=== PATIENT | male | born 1955 | race African-American/Black ===

== ENCOUNTER 2016-08-30 07:43 | Inpatient (IN) | payer OTHER ==
[~2016-08-30] VITALS: Ht 172.7 cm; Wt 89.2 kg
[2016-08-30] MEDS ORDERED: ONDANSETRON 4 MG INJ IV STA (07:59)
[2016-08-30] MEDS ORDERED: SOD CHLORIDE 0.9% 1,000 ML IV STA ×2 (07:59→09:20)
[2016-08-30] MEDS ORDERED: MECLIZINE 12.5 MG TAB PO ONE ×2 (08:00→09:30)
--- NOTE | 2016-08-30 08:27 | ERA ---
ER Documentation Chief Complaint Date/Time DATE: 08/30/16 TIME: 08:12 Chief Complaint pt bib self, woke up with dizziness/unsteady gait and left ear ringing HPI This is a very pleasant 61-year-old male with a known history of hypertension, who works as a critical care nurse, and presents to the emergency department complaining of a sudden onset of ringing and loss of hearing in his left ear. The patient indicates that he went to bed at 8 PM, 12 hours prior to arrival. At midnight the patient awoke to answer his phone and when he placed the phone to his left ear he stated he could not hear anything, which was 8 hours prior to arrival. The patient went back to sleep and when he awoke this morning at roughly 5 AM he indicated his symptoms have not been able to hear in his left ear still remained. At this time he stated he developed a sudden onset of dizziness and felt unsteady in his gait. He denied headache or changes in vision. He denies any recent remote head or neck trauma. The patient has a past medical history of hypertension and has been compliant with his medications. He denies any chest pain or pressure that radiates to the neck arm back or jaw. He wears glasses but states there is been no changes in vision. He denies any recent instrumentation to his left ear and indicates that there is no ear pain or ringing sensation in his left ear. He drove himself to the emergency department and did state his unsteadines made him feel as though he was going to pass out but did not experience a syncope episode. Has no shortness of breath at rest or exertion. He has never experienced any similar symptoms in the past ROS All systems reviewed and are negative except as per history of present illness. Medications Home Meds Reported Medications Clonidine Hcl* (Clonidine Hcl*) 0.3 Mg Tablet, 0.3 MG PO PRN Y for ELEVATED BLOOD PRESSURE, TAB 08/30/16 Esomeprazole Mag Trihydrate (Nexium) 40 Mg Capsule., 40 MG PO DAILY, #30 CAP 08/30/16 Allergies Allergies: Coded Allergies: No Known Allergy (Unverified , 08/30/16) Physical Exam Vitals Vital Signs Date Time Temp Pulse Resp B/P Pulse Ox O2 Delivery O2 Flow Rate FiO2 08/30/16 09:56 98.6 86 16 145/86 100 Room Air 08/30/16 08:32 98.6 86 16 143/93 100 Room Air 08/30/16 07:51 98.3 62 16 165/90 99 Physical Exam Constitutional:Well-developed. Well-nourished. HEENT:Normocephalic. Atraumatic.Pupils were equal round reactive to light. Moist mucous membranes.No tonsillar exudates. No bulging erythema the tympanic membranes bilaterally. No postauricular tenderness. Endoscopy exam showed sharp optic disc bilaterally venous pulsations were present. Neck: No nuchal rigidity. No lymphadenopathy. No posterior cervical spine tenderness or step-offs. Respiratory: Not using accessory muscles of respiration.Lungs were clear to auscultation bilaterally. No rhonchi. No rales. No wheezing. Cardiovascular: Regular rate regular rhythm.No murmurs. No rubs were appreciated.S1, S2 normal. Distal pulses are palpable 2+ bilaterally. GI: Abdomen was soft. Nontender. Non Distended. No pulsatile abdominal masses or bruits. No rebound. No guarding. Bowel sounds were present and normal. Muscle skeletal: Full range of motion of both the upper and lower extremities bilaterally.Normal muscle tone.No assymetrical calf tenderness or swelling. Skin: No petechia, no purpura. No lesions on the palms or the soles of the feet. No maculopapular rash. NEURO: Patient was alert, awake, orientated x3.No facial droop. Gait observed and ataxic.Speech had regular rate and rhythm. No focal neurological deficits. No facial droop or flattening nasolabial fold. No pronator drift. Romberg sign negative. Result Diagram: 08/30/1682708/30/1628 Results 24 hrs Laboratory Tests Test 08/30/16 08:28 Activated Partial Thromboplast Time 25.8Sec Alanine Aminotransferase (ALT/SGPT) 35IU/L Albumin 4.4g/dl Albumin/Globulin Ratio 1.15 Alkaline Phosphatase 67IU/L Anion Gap 18 Aspartate Amino Transf (AST/SGOT) 34IU/L Basophils # 0.010^3/ul Basophils % 0.8% Blood Urea Nitrogen 12mg/dl Calcium Level 9.8mg/dl Carbon Dioxide Level 30mmol/L Chloride Level 101mmol/L Creatine Kinase 561IU/L Creatine Kinase Index 0.8 Creatinine 1.15mg/dl Creatinine Kinase MB (Mass) 4.51ng/ml Direct Bilirubin 0.00mg/dl Eosinophils # 0.110^3/ul Eosinophils % 1.0% Globulin 3.80g/dl Glucose Level 89mg/dl Hematocrit 44.5% Hemoglobin 14.0g/dl INR International Normalized Ratio 0.94 Indirect Bilirubin 0.3mg/dl Lymphocytes # 2.310^3/ul Lymphocytes % 47.6% Mean Corpuscular Hemoglobin 27.9pg Mean Corpuscular Hemoglobin Concent 31.5g/dl Mean Corpuscular Volume 88.8fl Mean Platelet Volume 9.7fl Monocytes # 0.510^3/ul Monocytes % 10.1% Neutrophils # 1.910^3/ul Neutrophils % 40.3% Nucleated Red Blood Cells # 0.010^3/ul Nucleated Red Blood Cells % 0.0/100WBC Platelet Count 75545^3/UL Potassium Level 4.6mmol/L Prothrombin Time 12.6Sec Prothrombin Time Ratio 1.0 Red Blood Count 5.0110^6/ul Red Cell Distribution Width 12.7% Sodium Level 144mmol/L Total Bilirubin 0.3mg/dl Total Protein 8.2g/dl Troponin I 0.014ng/ml White Blood Count 4.810^3/ul Current Medications Medications (Trade) Dose Ordered Sig/Salomon Route PRN Reason Start Time Stop Time Status Last Admin Dose Admin Sodium Chloride (NS) 1,000 ml @ 1,000 mls/hr Q1H STAT IV 08/30/16 07:59 08/30/16 08:58 Cancel Ondansetron HCl (Zofran Inj) 4 mg ONCE STAT IV 08/30/16 07:59 08/30/16 08:00 Cancel Meclizine HCl 25 mg 25 mg ONCE ONCE PO 08/30/16 08:00 08/30/16 08:01 Cancel Sodium Chloride (NS) 1,000 ml @ 1,000 mls/hr Q1H STAT IV 08/30/16 09:20 08/30/16 10:19 08/30/16 09:43 Meclizine HCl (Antivert) 25 mg ONCE ONCE PO 08/30/16 09:30 08/30/16 09:31 DC 08/30/16 09:44 Acetaminophen (Tylenol Tab) 1,000 mg ONCE STAT PO 08/30/16 09:31 08/30/16 09:32 DC 08/30/16 09:44 Ondansetron HCl (Zofran Inj) 4 mg ER BRIDGE PRN IV NAUSEA AND/OR VOMITING 08/30/16 10:00 08/31/16 09:59 Acetaminophen (Tylenol Tab) 650 mg ER BRIDGE PRN PO MILD PAIN/FEVER 08/30/16 10:00 08/31/16 09:59 Procedures/MDM This patient presented to the emergency department with a sudden onset of unilateral hearing loss. He was immediately placed in a cardiac monitor technician continuous pulse oximetry and IV access was established by nursing staff. The patient did have an ataxic gait but given that his symptoms had started 12 hours prior to arrival, the patient was not a TPA candidate and therefore a code stroke was not called. I obtained a 12-lead EKG tracing to rule out atypical myocardial infarction. 12 Lead EKG tracing ordered and reviewed by myself showed: Normal sinus rhythm of 76 bpm and no arrhythmia. NE interval normal. QRS duration normal. No ST segment elevation No ST segment depression. T-wave inversion of the lateral leads V5 V6 The patient had no electrolyte abnormalities. I obtained a CT scan of the patient's head to further evaluate his ataxia and unilateral hearing loss. The patient had no intracerebral hemorrhage mass-effect or midline shift. When the patient was lying supine for the CT scan he stated he had a sudden onset of severe vertigo. The patient was also now complaining of a mild headache and my differential diagnosis included but was not limited to meningitis, SAH, intracerebral hemorrhage, hypertensive encephalopathy, cranial artery dissection , cerebral venous sinus thrombosis, traumatic, acute sinusitis. The patient has no ocular symptoms to suggest temporal neuritis, acute narrow-angle glaucoma or pituitary apoplexy. The patient did not appear to have a toxic or metabolic etiology such as fever, hypoglycemia, high-altitude disease or carbon monoxide poisoning. This was not the patients worse headache of their life. The patient had a complete neurologic and fundoscopic exam performed by myself that was normal with no focal neurological deficits or retinal hemorrhage. The patient stated this headache was not severe or distinct from other headaches and the history with the physical exam findings did not likely suggest SAH. Therefore, I did not feel it was clinically necessary to perform a lumbar puncture and CSF analysis. I did however feel it was necessary for the patient to be admitted for further evaluation into his symptoms and therefore I have ordered an MRI of the brain which will be followed up by the admitting physician Dr. Dubois. The patient was given Tylenol for his headache which did resolve the headache. He also was given a liter bolus of normal saline and Antivert with resolution of the vertigo. Departure Diagnosis: Primary Impression: Near syncope Additional Impressions: Ataxia Unilateral hearing loss Qualified Code: H91.92 - Unilateral hearing loss, left Condition: Serious DAVON LAWSON Aug 30, 2016 08:24
[2016-08-30 08:38] LABS: ADD SCAN DIFF NO
[2016-08-30 08:40] LABS: BASOPHILS % 0.8 % (0.0-2.0); EOSINOPHILS # 0.1 10^3/ul (0.0-0.5); HEMATOCRIT 44.5 % (42.0-52.0); LYMPHOCYTES # 2.3 10^3/ul (0.8-2.9); LYMPHOCYTES % 47.6 % (15.0-51.0); MEAN CORPUSCULAR HEMOGLOBIN 27.9 pg (29.0-33.0); MEAN CORPUSCULAR HGB CONC 31.5 g/dl (32.0-37.0); MEAN CORPUSCULAR VOLUME 88.8 fl (82.0-101.0); MEAN PLATELET VOLUME 9.7 fl (7.4-10.4); MONOCYTE # 0.5 10^3/ul (0.3-0.9); MONOCYTES % 10.1 % (0.0-11.0); NEUTROPHIL # 1.9 10^3/ul (1.6-7.5); NEUTROPHILS % 40.3 % (39.0-77.0); PLATELET COUNT 206 10^3/UL (140-415); RED BLOOD COUNT 5.01 10^6/ul (4.70-6.10); RED CELL DISTRIBUTION WIDTH 12.7 % (11.5-14.5); WHITE BLOOD COUNT 4.8 10^3/ul (4.8-10.8)
--- NOTE | 2016-08-30 08:51 | RADRPT ---
PROCEDURE: CT head without Contrast CLINICAL INDICATION: Possible stroke TECHNIQUE: Transaxial images were made through the head on a multi-slice scanner without intraveno us contrast. Coronal and sagittal images were subsequently reformatted. One or more of the following dose reduction techniques were used: - Automated exposure control. - Adjustment of the mA and/or kV according to patient size. - Use of iterative reconstruction technique. Radiation dose: CTDIvol = 38.77 mGy; DLP = 554.95 mGy-cm. COMPARISON: None FINDINGS: The calvarium appears intact. The mastoid air cells and paranasal sinuses are well-aerated.. The ventricles are normal in size and there is no midline shift. The sulci are diffusely prominent. No intracranial bleed, mass, or extra-axial fluid collection is identified. There is good ann-white matter differentiation. IMPRESSION: 1. Mild diffuse cortical volume loss. 2. No intracranial bleed, mass, extra-axial fluid collection or territorial infarct is identified. Physician Ina Date Time Electronically viewed and signed by Physician Ina on 08/30/2016 08:51 /
[2016-08-30 08:52] LABS: ALBUMIN 4.4 g/dl (3.3-4.9)
[2016-08-30 08:53] LABS: POTASSIUM 4.6 mmol/L (3.5-5.1)
[2016-08-30 08:55] LABS: ALBUMIN/GLOBULIN RATIO 1.15; BILIRUBIN,INDIRECT 0.3 mg/dl (0-1.1); BILIRUBIN,TOTAL 0.3 mg/dl (0.2-1.3); CREATININE 1.15 mg/dl (0.61-1.24); TOTAL PROTEIN 8.2 g/dl (6.1-8.1)
[2016-08-30 08:56] LABS: CALCIUM 9.8 mg/dl (8.4-10.2); INR 0.94; PARTIAL THROMBOPLASTIN TIME 25.8 Sec (25.0-35.0); PROTIME 12.6 Sec (12.2-14.2)
[2016-08-30 09:08] LABS: TROPONIN-I 0.014 ng/ml (0.00-0.12)
[2016-08-30 09:11] LABS: CK-MB 4.51 ng/ml (0.0-2.4)
[2016-08-30] MEDS ORDERED: ACETAMINOPHEN 500 MG TAB PO STA (09:31)
[2016-08-30] MEDS ORDERED: CLON0.3T PO (09:55)
[2016-08-30] MEDS ORDERED: ESOM40CA PO (09:55)
[2016-08-30] MEDS ORDERED: ACETAMINOPHEN 325 MG TAB PO PRN (10:00)
[2016-08-30] MEDS ORDERED: ONDANSETRON 4 MG INJ IV PRN (10:00)
[2016-08-30] MEDS ORDERED: LORAZEPAM 2 MG INJ IV ONE ×2 (12:00→21:00)
--- NOTE | 2016-08-30 14:19 | RADRPT ---
PROCEDURE: MRI brain without IV contrast CLINICAL INDICATION: Headache/ataxia/left hearing loss. TECHNIQUE: MRI examination of the brain was performed on a 3T high field MR scanner, following pul se sequences: T1-weighted axial/sagittal, axial FLAIR, T2-weighted axial, 3-D axial fiesta, coronal GRE sequence images are made including the diffusion images with ADC map. COMPARISON: CT brain, 08/30/2016. FINDINGS: There is mild cerebral atrophy. There are also minimal FLAIR/T2 hyperintensities at the periventric ular/subcortical deep white matters, likely microvascular ischemic changes. The ann/white matter d ifferentiation is well preserved. The diffusion images show no evidence of acute ischemia or recent infarct. The GRE images show no evidence of hemorrhage. There is no other abnormal intra-axial high or lower signal intensity lesion, suggesting tumor, infa rct, bleeding, av malformation or inflammatory lesion. No subdural or epidural hematoma. The brainstem is normal. The pituitary gland is unremarkable. T he pontomesencephalic angle is normal. The lateral ventricular angle is also normal. The cerebello pontine angle cisterns are clear. There are signal voids of the intracranial central arteries and d ural sinuses indicating patency. There is small benign polypoid lesion in the right sphenoid sinus. The visualized paranasal sinuses, orbits and temporal bones are also unremarkable. IMPRESSION: 1. Mild cerebral atrophy. 2. Minimal FLAIR/T2 hyperintensities at the periventricular/subcortical deep white matters, likely microvascular ischemic changes. 3. Small benign polypoid lesion in the right sphenoid sinus. RPTAT: GG .Charles Thompson MD, MD Date Time Electronically viewed and signed by .Charles Thompson MD, on 08/30/2016 14:19 .Y/
[2016-08-30 16:14] VITALS: TEMP 98.6
--- NOTE | 2016-08-30 17:26 | RADRPT ---
PROCEDURE: US Carotids. CLINICAL INDICATION: Hearing loss. TECHNIQUE: Multiple sonographic of the carotid arteries were obtained utilizing ann scale imaging . Color and Doppler imaging was performed. The images were reviewed on a PACS workstation. COMPARISON: No prior studies are available for comparison. FINDINGS: Location Right Left CCA 98 cm/sec 160 cm/sec Prox ICA 60 cm/sec 54 cm/sec Mid ICA 98 cm/sec 78 cm/sec Dist ICA 89 cm/sec 67 cm/sec ECA 96 cm/sec 78 cm/sec ICA/CCA 1.2 0.9 Antegrade flow is seen within the left vertebral artery. The right vertebral artery was not seen. M ild plaque is seen within the right internal carotid artery. No hemodynamically significant stenos is or occlusion is identified. IMPRESSION: 1. Mild right ICA plaque without evidence for hemodynamically significant stenosis - validated veloc ity measurements with angiographic measurements, velocity criteria are extrapolated from diameter da ta as defined by the Society of Radiologists in Ultrasound Consensus Conference Radiology 2003; 229; 340-346. This study does indirectly reference the measurement of the distal ICA diameter as the den ominator for stenosis measurement. 2. Antegrade flow seen within the left vertebral artery. The right vertebral artery was not seen a nd may be diminutive or occluded. SRU Consensus Conference Criteria for the Diagnosis of Carotid Artery Stenosis Degree of Stenosis, % ICA PSV, cm/sec Plaque Estimate, % ICA/CCA PSV Ratio Normal <125 None <2.0 <50 <125 <50 <2.0 50 69 125-230 >50 2.0-4.0 >70 but less than near occlusion >230 >50 <4.0 Near occlusion High, low, or undetectable Visible Variable Total occlusion Undetectable Visible, no detectable lumen Not applicable *Cartoid artery stenosis: ann-scale and Doppler US diagnosis. Society of Radiologists in Ultrasound Consensus Conference. Radiology 2003; 229: 340-346 RPTAT: AA .Charles Bocanegra MD, Date Time Electronically viewed and signed by .Charles Bocanegra MD, MD on 08/30/2016 17:25 .A/
[2016-08-30 18:23] LABS: CREATINE KINASE 444 IU/L (23-200)
[2016-08-30 18:33] LABS: CK-MB 3.83 ng/ml (0.0-2.4)
[2016-08-30 18:36] LABS: TROPONIN-I < 0.010 ng/ml (0.00-0.12)
[2016-08-30 19:34] VITALS: BP 161/95; PULSE 60; RESP 20
[2016-08-30 19:36] VITALS: Ht 172.7 cm; Wt 89.2 kg
[2016-08-30 20:00] VITALS: BP 161/95; RESP 16
[2016-08-30 20:27] VITALS: PULSE 60
[2016-08-30] MEDS: METOPROLOL 25 MG TAB PO SCH (20:46)
[2016-08-30] MEDS: MECLIZINE 25 MG TAB PO SCH (21:17)
[2016-08-30 22:51] LABS: TROPONIN-I 0.015 ng/ml (0.00-0.12)
[2016-08-30 22:57] LABS: CK-MB 4.03 ng/ml (0.0-2.4)
[2016-08-30 23:21] VITALS: BP 132/80; RESP 16
[2016-08-31] VITALS (12 sets, daily range): BP systolic 124–159; BP diastolic 73–84; PULSE 54–78; RESP 15–16
--- NOTE | 2016-08-31 03:30 | HP ---
DATE OF ADMISSION: 08/30/2016 PRESENTING COMPLAINT: Acute hearing loss and gait abnormalities. HISTORY OF PRESENTING COMPLAINT: Mr. 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 The patient reports waking up from sleep with these symptoms this m orning. He also says that when he tried to get out of bed to ambulate, he noticed that he could not walk steady and he had some dizziness. This illness further worsened when he got to the ER and tri ed to lie flat for a CAT scan, and this was now associated with some headache. He has not had simil ar symptoms before. He denies chest pain. He denies actual focal deficit, but he does note ataxia. He denies history of heart attacks or strokes in the past. He does have a past medical history of high blood pressure and has not been on any scheduled medication but treats himself only with cloni dine p.r.n. PAST MEDICAL HISTORY: Positive for 1. High blood pressure. 2. GERD. 3. Chronic constipation for which the patient has to take Dulcolax daily. PAST SURGICAL HISTORY: He denies. ALLERGIES: HE HAS NO KNOWN DRUG ALLERGIES. SOCIAL HISTORY: The patient denies tobacco, alcohol, or illicit drug use. FAMILY HISTORY: Positive for strokes and heart attack in his father. REVIEW OF SYSTEMS: Basically revealed findings as noted in the HPI. PHYSICAL EXAMINATION: VITAL SIGNS: Temperature 98.6, pulse 86, respirations 16, blood pressure 145/86, saturations 100% o n room air. GENERAL: I found a well-built male, alert and oriented, in no distress. HEENT: Head is normocephalic. Pupils are equal, round, and reactive. Mucous membranes are moist. Posterior pharynx was clear of erythema exudate. Examination of his left ear showed some mild eryt erwin in the external ear canal, but the eardrum was clean and not inflamed. Evaluation of the right ear was completely normal. NECK: Supple without adenopathy or tenderness. CHEST: Clear to auscultation bilaterally. CARDIOVASCULAR: S1 and 2 without murmurs. ABDOMEN: Soft, nontender, nondistended with normoactive bowel sounds. LOWER EXTREMITIES: He had no lower extremity edema. SKIN: Devoid of rash or jaundice. PSYCHIATRIC: Appropriate. LABORATORY DATA: His CBC was grossly normal as was his basic metabolic profile. His LFTs also were unremarkable. A chest x-ray did not show any acute cardiopulmonary abnormality. First troponin wa s negative. EKG did not show any abnormal rhythm concerning for an acute ischemic event. CT scan o f the brain did not show any intracerebral hemorrhage, mass effect, or midline shift. An MRI of the brain that was normal without contrast also did not show any acute ischemic event or any concern fo r multiple sclerosis or demyelinating brain disease. DIAGNOSES: At this time, the patient is to be admitted for ____, and the diagnoses are as follow. 1. Acute onset of hearing loss and ataxia. 2. High blood pressure with suboptimal control. 3. Chronic gastroesophageal reflux disease. 4. Chronic constipation, laxative dependent. PLAN: Admit him to a telemetry floor. I have spoken with neurology, Dr. Solo Stanford, who w ill consult on the patient. He does recommend repeating the MRI of the brain with IV contrast with attention to internal auditory canals. The patient will be ruled out also for an acute coronary syn drome. Physical therapy will be evaluating the patient, and we will rule out thyroid abnormality an d also get a 2D echo for further evaluation. Further interventions will depend on his clinical cour se. For clarification and further information, please review the patient's chart and my orders. Fo r prophylaxis, he will be on SCDs and proton pump inhibitor. Dictated By: MELIZA LEES MD, BA/ONDINA Conf#: [id number] DID#: [id number]
[2016-08-31] MEDS ORDERED: LORAZEPAM 2 MG INJ IV ONE (06:30)
[2016-08-31] MEDS: PANTOPRAZOLE (EC) 40 MG TAB PO SCH (06:36)
[2016-08-31] MEDS ORDERED: ACETAMINOPHEN 325 MG TAB PO PRN (07:00)
[2016-08-31] MEDS: POLYETHYLENE GLYCOL 17 GM PACKET PO SCH ×2 (09:00→09:13)
[2016-08-31] MEDS: MECLIZINE 25 MG TAB PO SCH ×3 (09:13→21:09)
[2016-08-31] MEDS: METOPROLOL 25 MG TAB PO SCH ×2 (09:13→21:10)
[2016-08-31] MEDS: DOCUSATE SODIUM 250 MG CAP PO SCH (09:13)
[2016-08-31] MEDS: ASPIRIN (EC) 81 MG TAB PO SCH (09:13)
[2016-08-31 10:19] LABS: ADD SCAN DIFF NO
[2016-08-31 10:27] LABS: BASOPHILS % 0.7 % (0.0-2.0); EOSINOPHILS # 0.1 10^3/ul (0.0-0.5); EOSINOPHILS % 1.3 % (0.0-7.0); HEMATOCRIT 46.8 % (42.0-52.0); HEMOGLOBIN 13.9 g/dl (14.0-18.0); LYMPHOCYTES # 2.3 10^3/ul (0.8-2.9); LYMPHOCYTES % 48.9 % (15.0-51.0); MEAN CORPUSCULAR HEMOGLOBIN 27.6 pg (29.0-33.0); MEAN CORPUSCULAR HGB CONC 29.7 g/dl (32.0-37.0); MEAN CORPUSCULAR VOLUME 92.9 fl (82.0-101.0); MEAN PLATELET VOLUME 10.3 fl (7.4-10.4); MONOCYTE # 0.3 10^3/ul (0.3-0.9); MONOCYTES % 7.2 % (0.0-11.0); NEUTROPHIL # 1.9 10^3/ul (1.6-7.5); NEUTROPHILS % 41.7 % (39.0-77.0); PLATELET COUNT 177 10^3/UL (140-415); RED BLOOD COUNT 5.04 10^6/ul (4.70-6.10); WHITE BLOOD COUNT 4.6 10^3/ul (4.8-10.8)
[2016-08-31 10:40] LABS: ALBUMIN 3.9 g/dl (3.3-4.9)
[2016-08-31 10:41] LABS: POTASSIUM 4.4 mmol/L (3.5-5.1)
[2016-08-31 10:44] LABS: CALCIUM 9.7 mg/dl (8.4-10.2); CHOL/HDL RATIO 4.9 RATIO; PHOSPHORUS 3.2 mg/dl (2.5-4.9)
--- NOTE | 2016-08-31 10:50 | PN ---
Date/Time of Note Date/Time of Note DATE: 08/31/16 TIME: 10:41 Assessment/Plan VTE Prophylaxis VTE Prophylaxis Intervention: LMWH Lines/Catheters IV Catheter Type (from Nrs): Saline Lock Assessment/Plan Assessment/Plan 61 yo M with PMH of HTN managed for 1. Acute onset of hearing loss and ataxia. 2. High blood pressure with suboptimal control. 3. Chronic gastroesophageal reflux disease. 4. Chronic constipation, laxative dependent. 5. Mild Rhabdomyolysis 6. Elevated CK-MB likely 2/2 #5 7. Dyslipidemia PLAN: * We (Patient and I) spoke with ENT (Dr Nieto) via telephone, Per ENT if no evidence of stroke or other abnormality on MRI, patient likely has Viral infection causing neuritis that has caused vestibular imbalance and hearing loss. Viral syndrome can also explain mild rhabdomyolysis and leucopenia. * He recommends high dose steroid therapy (prednisone 60mg) and office visit followup for detailed audiological testing and evaluation * Also spoke with cardio and neurology and will follow their recommendations * For now continue aggressive IVF hydration for rhabdo, F/u MRI +contrast study / remain on tele for now * Low Cholesterol/ low fat diet * Supportive care * Probable d/c if MRI is negative and cleared for d/c by all specialists. 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 Exam/Review of Systems Vital Signs Vitals Vital Signs Date Time Temp Pulse Resp B/P Pulse Ox O2 Delivery O2 Flow Rate FiO2 08/31/16 08:12 78 08/31/16 07:50 98.4 16 159/84 97 08/30/16 19:34 Room Air Intake and Output 08/30/16 08/30/16 08/31/16 15:00 23:00 07:00 Intake Total 950 ml Output Total 800 ml Balance 150 ml Exam Constitutional: alert, oriented, No distress Psych: anxiety Head: normocephalic Eyes: PERRL ENMT: mucosa pink and moist Neck: supple Respiratory: clear to auscultation Cardiovascular: nl pulses, regular rate and rhythm, No murmurs/extra sounds Gastrointestinal: bowel sounds, non-tender, soft Musculoskeletal: muscle weakness Extremities: No edema Neurological: nl mental status, No focal weakness Results Result Diagram: 08/31/16 0955 08/30/16 0828 Results 24 hrs Laboratory Tests Test 08/30/16 18:00 08/30/16 22:05 08/31/16 09:55 Creatine Kinase 444 H 463 H Creatine Kinase Index 0.9 0.9 Creatinine Kinase MB (Mass) 3.83 H 4.03 H Magnesium Level 2.1 Troponin I < 0.010 0.015 Basophils # 0.0 Basophils % 0.7 Eosinophils # 0.1 Eosinophils % 1.3 Hematocrit 46.8 Hemoglobin 13.9 L Lymphocytes # 2.3 Lymphocytes % 48.9 Mean Corpuscular Hemoglobin 27.6 L Mean Corpuscular Hemoglobin Concent 29.7 L Mean Corpuscular Volume 92.9 Mean Platelet Volume 10.3 Monocytes # 0.3 Monocytes % 7.2 Neutrophils # 1.9 Neutrophils % 41.7 Nucleated Red Blood Cells # 0.0 Nucleated Red Blood Cells % 0.0 Platelet Count 177 Red Blood Count 5.04 Red Cell Distribution Width 13.0 White Blood Count 4.6 L Medications Medications Current Medications Pantoprazole (Protonix Tab) 40 mg DAILY@06 PO Last administered on 08/31/16 06 :36; Admin Dose 40 MG; Start 08/31/16 at 06:00 Docusate Sodium (Colace) 250 mg DAILY PO Last administered on 08/31/16 09:13; Admin Dose 250 MG; Start 08/31/16 at 09:00 Polyethylene Glycol (Miralax) 17 gm DAILY PO ; Start 08/31/16 at 09:00 Aspirin (Halfprin) 81 mg DAILY PO Last administered on 08/31/16 09:13; Admin Dose 81 MG; Start 08/31/16 at 09:00 Metoprolol Tartrate (Lopressor) 25 mg BID PO Last administered on 08/31/16 09: 13; Admin Dose 25 MG; Start 08/30/16 at 21:00 Meclizine HCl (Antivert) 25 mg TID PO Last administered on 08/31/16 09:13; Admin Dose 25 MG; Start 08/30/16 at 21:00 Acetaminophen (Tylenol Tab) 650 mg Q6H PRN PO PAIN AND OR ELEVATED TEMP Last administered on 08/31/16 06:53; Admin Dose 650 MG; Start 08/31/16 at 07:00 Procedures Procedures PROCEDURE: US Carotids. CLINICAL INDICATION: Hearing loss. TECHNIQUE: Multiple sonographic of the carotid arteries were obtained utilizing ann scale imaging. Color and Doppler imaging was performed. The images were reviewed on a PACS workstation. COMPARISON: No prior studies are available for comparison. FINDINGS: Location Right Left CCA 98 cm/sec 160 cm/sec Prox ICA 60 cm/sec 54 cm/sec Mid ICA 98 cm/sec 78 cm/sec Dist ICA 89 cm/sec 67 cm/sec ECA 96 cm/sec 78 cm/sec ICA/CCA 1.2 0.9 Antegrade flow is seen within the left vertebral artery. The right vertebral artery was not seen. Mild plaque is seen within the right internal carotid artery. No hemodynamically significant stenosis or occlusion is identified. IMPRESSION: 1. Mild right ICA plaque without evidence for hemodynamically significant stenosis - validated velocity measurements with angiographic measurements, velocity criteria are extrapolated from diameter data as defined by the Society of Radiologists in Ultrasound Consensus Conference Radiology 2003; 229;340-346. This study does indirectly reference the measurement of the distal ICA diameter as the denominator for stenosis measurement. 2. Antegrade flow seen within the left vertebral artery. The right vertebral artery was not seen and may be diminutive or occluded. SRU Consensus Conference Criteria for the Diagnosis of Carotid Artery Stenosis Degree of Stenosis, % ICA PSV, cm/sec Plaque Estimate, % ICA/CCA PSV Ratio Normal <125 None <2.0 <50 <125 <50 <2.0 50 69 125-230 >50 2.0-4.0 >70 but less than near occlusion >230 >50 <4.0 Near occlusion High, low, or undetectable Visible Variable Total occlusion Undetectable Visible, no detectable lumen Not applicable *Cartoid artery stenosis: ann-scale and Doppler US diagnosis. Society of Radiologists in Ultrasound Consensus Conference. Radiology 2003; 229: 340-346 RPTAT: AA .Charles Bocanegra MD, MD Date Time Electronically viewed and signed by .Charles Bocanegra MD, on 08/30/2016 17:25 MELIZA LEES Aug 31, 2016 10:49
[2016-08-31] MEDS ORDERED: SOD CHLORIDE 0.9% 1,000 ML IV SCH (11:00)
[2016-08-31 11:13] LABS: THYROID STIMULATING HORMONE 1.2 MIU/L (0.465-4.680)
[2016-08-31] MEDS: ENOXAPARIN 40 MG/0.4 ML SYG SC SCH (11:27)
[2016-08-31] MEDS: predniSONE 20 MG TAB PO SCH ×2 (13:30→14:51)
--- NOTE | 2016-08-31 15:04 | RADRPT ---
PROCEDURE: MRI Brain and IACs without and with contrast. CLINICAL INDICATION: Acute hearing loss TECHNIQUE: Multiplanar MRI of the brain was performed on a 3.0 T scanner utilizing the following se quences: T1-weighted, T2-weighted FLAIR, diffusion weighted, and postcontrast T1-weighted. Additio natalia, thin section imaging through the internal auditory canals was performed utilizing the followi ng sequences: 3-D FIESTA, and pre and post postcontrast T1-weighted. 10 cc intravenous Magnevist ad ministered. COMPARISON: MRI, CT brain 08/30/2016 FINDINGS: MRI BRAIN: No acute/recent ischemic infarction or intracranial hemorrhage is identified. No extra-axial fluid collection is seen. Intracranial mass lesion is identified. There is no mass effect or midline minoo ft. The ventricles and sulci are mildly enlarged compatible with volume loss. The septum pellucidum is partially absent posteriorly. No signal abnormality is identified in the cerebrum, brainstem or cerebellum. Mild cerebellar tonsillar descent below the foramen magnum is seen measuring approximat maximo 3 - 4 mm without significantly pointed appearance of the tonsils or crowding at the foramen magn um. This is towards upper limits of normal. No abnormal parenchymal, leptomeningeal or dural enhan cement is identified. Normal flow voids are visible in the proximal intracranial arteries and dural sinuses, suggesting patency. Noted is a moderate - large right sphenoid sinus polyp or retention c yst with increased T1-weighted signal intensity which may reflect proteinaceous contents. MRI IACS: The internal auditory canals are patent bilaterally. The vestibulocochlear and facial nerve complex es are unremarkable without abnormal enhancement identified. No cerebellopontine angle mass lesion is identified. The membranous labyrinth structures including the cochlea, vestibule and semicircula r canals are unremarkable. The visualized trigeminal nerves and Meckel caves are unremarkable. The mastoid air cells are clear. IMPRESSION: 1. Unremarkable MRI through the internal auditory canal regions. 2. No evidence of acute intracranial pathology, or intracranial mass. 3. Mild volume loss. 4. Partly absent septum pellucidum. RPTAT: EE .Devyn Pryor MD, MD Date Time Electronically viewed and signed by .Devyn Pryor MD, MD on 08/31/2016 15:04 .O/
--- NOTE | 2016-08-31 15:37 | RADRPT ---
Echocardiogram Report Patient Name: RASHIDA HENRY Gender: Male Date: 1955 Study Date: 31-Aug-2016 Clothes Presser: [facility] Location: 508 Ref. Physician: MELIZA LEES Quality: Adequate Procedures: Transthoracic echocardiogram with complete 2D, M-Mode, and doppler examination. Indications: Cerebrovascular Accident. 2D/M Mode Doppler Measurement Value Normal Ranges Measurement Value Normal Ranges LVIDd 2D 4.8 3.5 - 5.6 cm AV Peak Ronaldo 1.4 m/sec LVIDs 2D 3.5 2.1 - 4.1 cm AV Peak PG 7.6 mmHg LVPWd 2D 1.0 0.6 - 1.1 cm LVOT Peak Ronaldo 0.9 m/sec IVSd 2D 1.0 0.6 - 1.1 cm LVOT Peak PG 2.9 mmHg AoR Diam 2D 3.0 2.0 - 3.7 cm MV E Peak Ronaldo 0.7 m/sec EDV 2D 105.9 cm3 MV A Peak Ronaldo 0.6 m/sec ESV 2D 42.8 cm3 MV E/A 1.2 MV Decel Time 262 msec MV Decel [place] 3 MV E/A 1.2 Findings Left Ventricle: Normal left ventricular systolic function. Normal left ventricular cavity size. Normal left ventricular wall thickness. Ejection fraction is visually estimated at 55 %. Abnormal Diastolic Function. Right Ventricle: Normal right ventricular size. Left Atrium: The left atrium is normal in size. Right Atrium: The right atrium is normal in size. Mitral Valve: Mild mitral leaflet calcification. Mild mitral annular calcification. Trace mitral regurgitation. Aortic Valve: Aortic valve not well visualized. Aortic cusps appear mildly calcified. Trace aortic valve regurgitation. Tricuspid Valve: Tricuspid valve not well visualized. There is trace tricuspid regurgitation. Pulmonic Valve: There is trace pulmonic regurgitation. Pericardium: Normal pericardium with no significant pericardial effusion. Aorta: Normal aortic root. IVC: Normal size and normal respiratory collapse consistent with normal right atrial pressure. Conclusions 1.Normal left ventricular systolic function. Normal left ventricular cavity size. Normal left ventricular wall thickness. Ejection fraction is visually estimated at 55 %. Abnormal Diastolic Function. 2.Mild mitral leaflet calcification. Mild mitral annular calcification. Trace mitral regurgitation. 3.Aortic valve not well visualized. Aortic cusps appear mildly calcified. Trace aortic valve regurgitation. 4.Tricuspid valve not well visualized. There is trace tricuspid regurgitation. 5.Normal pericardium with no significant pericardial effusion. Electronically Signed By: Jorge Ambrosio 31-Aug-2016 15:36:42 -0800 Patient Name: RASHIDA HENRY Study Date: 31-Aug-[id number]
[2016-08-31] MEDS ORDERED: PRED20 PO (16:40)
--- NOTE | 2016-08-31 17:26 | CONS ---
DATE OF ADMISSION: 08/30/2016 DATE OF CONSULTATION: 08/31/2016 REFERRING PHYSICIAN: Maurisio Dubois MD REASON FOR EVALUATION: Abnormal EKG, elevated CK-MB. 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 The patient noted that he had an unusual sensation with sound. He determined that he has lost hearing in the ear. The patien t already had a CAT scan of the head, which did not show any acute abnormality. In the setting of t [facility] event, the patient also had elevated CK-MB and CK total but no troponins, and I have been asked to see the patient in consultation for cardiac risk stratification. The patient also has some ST-T changes and his anterior ____ leads, which is somewhat unusual. The patient does not report any junior st pain. He is not short of breath. The only symptom he finds is acute hearing loss. For now, we are awaiting MRI. I discussed the case with Dr. Dubois. I think outpatient risk stratification is not unreasonable. However, if the patient is going to stay in the hospital, it might not be unreasonabl e to risk stratify him with a stress test while he is here in the hospital. PAST MEDICAL HISTORY: 1. Hypertension. 2. Dyslipidemia. 3. GERD. 4. History of constipation. ALLERGIES: NO KNOWN DRUG ALLERGIES. SOCIAL HISTORY: The patient does not smoke, does not drink, does not use drugs. FAMILY HISTORY: Positive for CVA and heart attack on the paternal side. CURRENT MEDICATIONS INCLUDE: 1. Prednisone 60 mg once a day. 2. Lovenox subcutaneous. 3. Sodium ____ once a day. 3. Acetaminophen. 4. Pantoprazole. 5. Metoprolol 25 mg p.o. b.i.d. 6. Meclizine. REVIEW OF SYSTEMS: CONSTITUTIONAL: No fevers, no chills. Acute hearing loss, as described. HEENT: No changes in vision. CARDIAC: No chest pain reported now. RESPIRATORY: No shortness of breath. GASTROINTESTINAL: No nausea, vomiting, diarrhea. GENITOURINARY: No dysuria, hematuria. NEUROLOGIC: No focal neurologic deficits. HEMATOLOGIC: ____. PSYCHIATRIC: No known history of psychiatric illness. PHYSICAL EXAMINATION: VITAL SIGNS: Temperature is 98.5, heart rate is 54, blood pressure 141/____. GENERAL: He is a well-nourished gentleman in no acute distress, alert and oriented x3, aware of his condition. HEAD: Normocephalic, atraumatic. Eyes anicteric. NECK: Supple. JVP 7 to 8 cm. There is no lymphadenopathy. No thyromegaly. HEART: ____ with soft holosystolic ejection murmur, mid chest ____. PMI is minimally displaced. T here is no ____. LUNGS: Coarse at bases. ABDOMEN: Distended, bowel sounds are present. There is no hepatosplenomegaly. GENITOURINARY: Grossly intact. EXTREMITIES: No cyanosis or edema. SKIN: ____. NEUROLOGICAL: He is able to move his extremities. The only neurologic finding is the hearing loss in the left side. LABORATORY DATA: White blood cell count is 4.6, hemoglobin is ____, platelets 177. INR is 0.9. Hi s troponin is negative at ____ x2. Triglycerides 151. Creatinine is 1.0. ASSESSMENT AND PLAN: 1. Elevated CK-MB and CK total. The patient has elevated CK-MB and total. This is in the setting of acute hearing loss. This is not really consistent with acute myocardial infarction. Will contin ue to monitor for now. The patient does have some unusual ST-T changes in his precordial leads. I think it might not be unreasonable to risk stratify the patient with a stress test which will be don e inpatient or outpatient. 2. Hypertension. Blood pressure moderately well controlled now. Continue medical therapy. 3. Acute hearing loss. ENT to follow as an outpatient. The patient will continue on prednisone no w. 4. Dyslipidemia. The patient has high triglycerides and cholesterol. Diet modification is advised . 5. Abnormal EKG, nonspecific ST-T changes. Will wait for 2D echo. Will discuss with Dr. Dubois once the results are available. I would like to thank Dr. Dubois for referring this patient for my evaluation. Dictated By: ADDI GASPAR MD ML/NTS Conf#: [id number] DID#: [id number]
--- NOTE | 2016-08-31 18:38 | CONS ---
DATE OF ADMISSION: 08/30/2016 DATE OF CONSULTATION: TYPE OF CONSULTATION: Neurology. Thank you, Dr. Dubois, for your kind referral for evaluation of hearing loss. HISTORY OF PRESENT ILLNESS: The patient is a 61-year-old gentleman with past medical history of hyp ertension, who woke up yesterday with left-sided hearing loss, complains of some low pitch tinnitus and mild ataxia and mild vertigo, usually when he gets up suddenly from a supine position. He had C AT scan followed by MRI with and without contrast with attention to internal auditory canals, all ca me normal. According to the PMD note, the case was discussed with ENT specialist over the phone, wh o recommended to start prednisone 60 mg and suggested outpatient followup with ENT. LABS: normal CBC, normal comprehensive metabolic panel. Cholesterol 208, salicylates 151, mildly e levated CK 400s. Normal PT and PTT. PAST MEDICAL HISTORY: As above. ALLERGIES: NONE. SOCIAL HISTORY: No alcohol, tobacco, drug use. FAMILY HISTORY: Strokes and heart attack. REVIEW OF SYSTEMS: As per history of present illness. MEDICATIONS: 1. He was put on prednisone 60 mg, first dose today. 2. Lovenox. 3. MiraLax. 4. Aspirin 81 mg. 5. Protonix. 6. Lopressor. 7. Antivert. PHYSICAL EXAMINATION: VITAL SIGNS: Temperature 98.8, 61 pulse, 16 respirations, 141/82 blood pressure. GENERAL: Not in acute distress, lying in bed. HEENT: Normocephalic, atraumatic head. NECK: No carotid bruits. No thyromegaly. LUNGS: Clear to auscultation bilaterally. CARDIAC: Normal cardiac rhythm and sounds. ABDOMEN: Soft, nontender. EXTREMITIES: No cyanosis, clubbing, or edema. NEUROLOGIC: He is awake, alert, and oriented x3 with fluent speech. Cranial nerve examination show s intact visual harper bilaterally. Pupils round, reactive to light from 4 to 2 mm bilaterally. Ex traocular movements intact without nystagmus. Symmetrical face. Preserved facial strength and sens ation. Tongue is in midline. Palate elevates symmetrically. There is hearing loss in the left ear to finger rub. Motor strength examination preserved in all extremities. Normal bulk, tone, and st rength. Sensory examination grossly intact to light touch and pain. Deep tendon reflexes 2+ throug hout. Downgoing toes bilaterally. Coordination preserved on [id number] testing. No dysmetri a or tremor. Gait essentially normal, somewhat cautious, but no major ataxia. IMPRESSION: Acute hearing loss. Likely diagnosis is viral cochleitis. Strokes and multiple sclero sis were excluded by MRI with contrast. Patient was started on steroids per ENT recommendations. F rom my perspective, patient could be discharged to home on steroids with close followup with ENT. Thank you very much for this interesting consultation. Dictated By: BASHIR JURADO/ONDINA Conf#: [id number] DID#: [id number]
[2016-09-01 00:06] VITALS: PULSE 64
[2016-09-01 01:13] LABS: ADD UMIC NO; URINE BILIRUBIN (Dip) NEGATIVE (NEGATIVE); URINE BLOOD (Dip) NEGATIVE (NEGATIVE); URINE COLOR LT. YELLOW (YELLOW); URINE GLUCOSE (Dip) NEGATIVE (NEGATIVE); URINE KETONES (Dip) NEGATIVE (NEGATIVE); URINE LEUKOCYTE ESTERASE (Dip) NEGATIVE (NEGATIVE); URINE NITRITE (Dip) NEGATIVE (NEGATIVE); URINE TOTAL PROTEIN (Dip) NEGATIVE (NEGATIVE); URINE UROBILINOGEN (Dip) 0.2 E.U./dL (0.1-1.0)
[2016-09-01 03:46] VITALS: BP 111/69; RESP 16
[2016-09-01 04:10] VITALS: PULSE 71
[2016-09-01] MEDS: PANTOPRAZOLE (EC) 40 MG TAB PO SCH (05:45)
[2016-09-01 07:51] LABS: ADD SCAN DIFF NO
[2016-09-01 07:58] LABS: BASOPHILS % 0.3 % (0.0-2.0); HEMATOCRIT 44.4 % (42.0-52.0); HEMOGLOBIN 13.7 g/dl (14.0-18.0); LYMPHOCYTES # 2.4 10^3/ul (0.8-2.9); LYMPHOCYTES % 20.6 % (15.0-51.0); MEAN CORPUSCULAR HEMOGLOBIN 27.5 pg (29.0-33.0); MEAN CORPUSCULAR HGB CONC 30.9 g/dl (32.0-37.0); MEAN PLATELET VOLUME 9.8 fl (7.4-10.4); MONOCYTE # 0.8 10^3/ul (0.3-0.9); MONOCYTES % 6.6 % (0.0-11.0); NEUTROPHIL # 8.5 10^3/ul (1.6-7.5); NEUTROPHILS % 72.2 % (39.0-77.0); PLATELET COUNT 212 10^3/UL (140-415); RED BLOOD COUNT 4.99 10^6/ul (4.70-6.10); RED CELL DISTRIBUTION WIDTH 12.6 % (11.5-14.5); WHITE BLOOD COUNT 11.7 10^3/ul (4.8-10.8)
[2016-09-01 08:00] VITALS: BP 145/88; PULSE 70; RESP 18
[2016-09-01 08:07] LABS: ALBUMIN 4.2 g/dl (3.3-4.9); POTASSIUM 4.8 mmol/L (3.5-5.1)
[2016-09-01 08:08] VITALS: PULSE 53
[2016-09-01 08:10] LABS: CALCIUM 9.6 mg/dl (8.4-10.2); CREATININE 1.12 mg/dl (0.61-1.24)
[2016-09-01] MEDS: predniSONE 20 MG TAB PO SCH (08:56)
[2016-09-01] MEDS: MECLIZINE 25 MG TAB PO SCH (08:56)
[2016-09-01] MEDS: DOCUSATE SODIUM 250 MG CAP PO SCH (08:56)
[2016-09-01] MEDS: METOPROLOL 25 MG TAB PO SCH (08:57)
[2016-09-01] MEDS: POLYETHYLENE GLYCOL 17 GM PACKET PO SCH (08:57)
[2016-09-01] MEDS: ASPIRIN (EC) 81 MG TAB PO SCH (08:57)
[2016-09-01] MEDS: ENOXAPARIN 40 MG/0.4 ML SYG SC SCH (08:59)
--- NOTE | 2016-09-01 09:58 | CONS ---
Date/Time of Note Date/Time of Note DATE: 09/01/16 TIME: 09:56 Assessment/Plan Assessment/Plan Additional Assessment/Plan 1. Elevated CK-MB and CK total. The patient has elevated CK-MB and total. This is in the setting of acute hearing loss. This is not really consistent with acute myocardial infarction. Will continue to monitor for now. The patient does have some unusual ST-T changes in his precordial leads. I think it might not be unreasonable to risk stratify the patient with a stress test which will be done inpatient or outpatient. OUTPT preferred per pt. 2. Hypertension. Blood pressure moderately well controlled now. Continue medical therapy. 3. Acute hearing loss. ENT to follow as an outpatient. The patient will continue on prednisone now. BETTER NOW - some hearing returned. 4. Dyslipidemia. The patient has high triglycerides and cholesterol. Diet modification is advised. 5. Abnormal EKG, nonspecific ST-T changes - PER PT, chronic - has outpt cards - EF 55-60%. Consultation Date/Type/Reason Admit Date/Time Aug 30, 2016 at 09:59 Initial Consult Date 24 HR Interval Summary Free Text/Dictation Now with some return of hearing . No tachy-laila arrhythmia - ENT follow up as outpt. ROS: No fever, no chills, no nausea, no vomiting, no diarrhea/constipation No recent weight changes No chest pain, no PND, no orthopnea No dizziness, blurred vision No thirst, no heat or cold intolerance Exam/Review of Systems Vital Signs Vitals Vital Signs Date Time Temp Pulse Resp B/P Pulse Ox O2 Delivery O2 Flow Rate FiO2 09/01/16 08:08 53 09/01/16 08:00 98.0 18 145/88 98 Room Air Intake and Output 08/31/16 08/31/16 09/01/16 15:00 23:00 07:00 Intake Total 1800 ml 1000 ml Output Total 800 ml 950 ml Balance 1000 ml 50 ml Exam General: WN/WD/NAD, AOx 3 HEENT: Unicetric/atraumatic/EOMI (follow commands) NECK: JVD elevated, no thyromegaly Lymph: no lymphadenopathy HEART: regular with no S3, II/ systolic murmur at apex LUNGS: Coarse sounds ABD: soft, NT, ND, +BS : Intact Neuro: non focal SKIN: chronic changes EXT: trace edema Results Result Diagram: 2/27/17 0730 09/01/16 0730 Results 24 hrs Laboratory Tests Test 09/01/16 01:08 09/01/16 07:30 Urine Bilirubin NEGATIVE Urine Clarity CLEAR Urine Color LT. YELLOW Urine Glucose NEGATIVE Urine Hemoglobin NEGATIVE Urine Ketones NEGATIVE Urine Leukocyte Esterase NEGATIVE Urine Nitrite NEGATIVE Urine Specific [place] 1.010 Urine Total Protein NEGATIVE Urine Urobilinogen 0.2 E.U./dL Urine pH 7.0 Albumin 4.2 Anion Gap 17 H Basophils # 0.0 Basophils % 0.3 Blood Urea Nitrogen 15 Calcium Level 9.6 Carbon Dioxide Level 30 Chloride Level 101 Creatinine 1.12 Eosinophils # 0.0 Eosinophils % 0.0 Glucose Level 99 Hematocrit 44.4 Hemoglobin 13.7 L Lymphocytes # 2.4 Lymphocytes % 20.6 Mean Corpuscular Hemoglobin 27.5 L Mean Corpuscular Hemoglobin Concent 30.9 L Mean Corpuscular Volume 89.0 Mean Platelet Volume 9.8 Monocytes # 0.8 Monocytes % 6.6 Neutrophils # 8.5 H Neutrophils % 72.2 Nucleated Red Blood Cells # 0.0 Nucleated Red Blood Cells % 0.0 Phosphorus Level 5.0 H Platelet Count 212 Potassium Level 4.8 Red Blood Count 4.99 Red Cell Distribution Width 12.6 Sodium Level 143 White Blood Count 11.7 #H Medications Medications Current Medications Pantoprazole (Protonix Tab) 40 mg DAILY@06 PO Last administered on 09/01/16 05 :45; Admin Dose 40 MG; Start 08/31/16 at 06:00 Docusate Sodium (Colace) 250 mg DAILY PO Last administered on 09/01/16 08:56; Admin Dose 250 MG; Start 08/31/16 at 09:00 Polyethylene Glycol (Miralax) 17 gm DAILY PO ; Start 08/31/16 at 09:00 Aspirin (Halfprin) 81 mg DAILY PO Last administered on 09/01/16 08:57; Admin Dose 81 MG; Start 08/31/16 at 09:00 Metoprolol Tartrate (Lopressor) 25 mg BID PO Last administered on 09/01/16 08: 57; Admin Dose 25 MG; Start 08/30/16 at 21:00 Meclizine HCl (Antivert) 25 mg TID PO Last administered on 09/01/16 08:56; Admin Dose 25 MG; Start 08/30/16 at 21:00 Acetaminophen (Tylenol Tab) 650 mg Q6H PRN PO PAIN AND OR ELEVATED TEMP Last administered on 08/31/16 06:53; Admin Dose 650 MG; Start 08/31/16 at 07:00 Enoxaparin Sodium (Lovenox) 40 mg DAILY SC Last administered on 09/01/16 08:59 ; Admin Dose 40 MG; Start 08/31/16 at 11:00 Prednisone (Prednisone) 60 mg DAILY PO Last administered on 09/01/16 08:56; Admin Dose 60 MG; Start 08/31/16 at 13:30 ADDI GASPAR MD Sep 01, 2016 09:58
[2016-09-01] MEDS ORDERED: MECL-77 PO (11:59)
[2016-09-01] MEDS ORDERED: METO-448 PO (11:59)
[2016-09-01 12:00] VITALS: BP 138/75; PULSE 67; RESP 18
--- NOTE | 2016-09-01 12:48 | DS ---
DATE OF ADMISSION: 08/30/2016 DATE OF DISCHARGE: 09/01/2016 HOSPITAL COURSE: The patient came in with acute hearing loss and some gait abnormality. He was adm itted, seen by cardiology team and neurology team during this hospital stay. He underwent a carotid Doppler study that showed mild right ICA plaque, but no evidence of any hemodynamically significant stenosis. There was also a brain MRI performed that showed unremarkable MRI through the internal a uditory canal regions. No evidence for any acute intracranial pathology or intracranial mass. Ther e was also a thought that the acute hearing loss was due to a viral cochleitis as strokes and multip le sclerosis were excluded by the MRI. The patient was recommended to be started on prednisone. Th ere was a consultation over the phone with the ENT team, and they recommended continuing the antibio tics as well as meclizine for any dizziness symptoms. So the patient's symptoms have improved. He still some mild dizziness symptoms, but able to ambulate and tolerate a p.o. diet. His elevated CK- MB and CK total was evaluated by cardiology team, although he had some unusual ST changes in his pre cordial leads on his EKG. There was no consistent thought of any acute myocardial infarction. Ther e was recommendation for an outpatient stress test which the patient will have performed. [facility], his hearing loss symptoms have improved, and he will be discharged home today in improved co ndition. DISCHARGE MEDICATIONS: He will be sent with: 1. Meclizine 25 mg t.i.d. 2. Metoprolol 25 mg b.i.d. 3. Prednisone 60 mg for the next week. 4. ____ 40 mg daily. He will need to follow up again with ENT doctor and possibly cardiology and neurology doctors in the clinic in the next 1 week. FINAL DIAGNOSES: 1. Acute hearing loss and ataxia secondary to likely viral vestibular infection syndrome. 2. Essential hypertension with suboptimal control, now on improved blood pressure medicine control. 3. Gastroesophageal reflux disease. 4. Chronic constipation. 5. Mild rhabdomyolysis secondary to #1. 6. Elevated CK-MB secondary to rhabdomyolysis, improved. Time spent with patient, 40 minutes. Dictated By: KELLE ELAM Conf#: [id number] DID#: [id number]
== END 2016-09-01 13:09 | disposition home or self-care (01) | DRG 149 ==
LOC: E/R 07:43 → TEL 09:59
PROVIDERS: ADMIT Family Medicine; ATTEND Family Medicine
DX: H83.02 Labyrinthitis, left ear (principal); M62.82 Rhabdomyolysis; H81.8X2 Other disorders of vestibular function, left ear; R27.0 Ataxia, unspecified; I10 Essential (primary) hypertension; K21.9 Gastro-esophageal reflux disease without esophagitis; K59.09 Other constipation; H91.92 Unspecified hearing loss, left ear; E78.5 Hyperlipidemia, unspecified
CPT/HCPCS: 70450; 70551; 70552; 80053; 80061; 80069; 81003; 82550; 82553; 83036; 83735; 84443; 84484; 85025; 85610; 85730; 93005; 93306; 93880; 96374; J1650; J2060; J7030; J7512